=== PATIENT | male | born 1940 | race Caucasian/White ===

== ENCOUNTER → 2018-02-02 12:07 | Outpatient (REF) | payer MEDICARE, SELFPAY ==
[2018-02-02 20:28] LABS: Abs Immature Grans 0.11 k/cumm (0.0-0.09); Absolute Basophil Count 0.04 k/cumm (0.0-0.2); Absolute Eosinophil Count 0.08 k/cumm (0.0-0.7); Absolute Lymphocyte Count 1.35 k/cumm (1.2-3.4); Absolute Monocyte Count 0.92 k/cumm (0.11-0.7); Absolute Neutrophil Count 6.93 k/cumm (1.2-6.7); Basophils % 0.4; Eosinophils % 0.8; HCT 43.5 % (40.0-50.0); Immature Grans % 1.2; Lymphocytes % 14.3; Mean Corp. HGB Concentration 34.5 g/dL (32.0-36.0); Mean Corpuscular Hemoglobin 31.4 pg (27.0-33.0); Mean Corpuscular Volume 91.2 fL (80-95); Mean Platelet Volume 10.3 fL (8.0-11.0); Monocytes % 9.8; Neutrophils % 73.5; Platelet Count 353 x1000/uL (130-400); RBC 4.77 m/cumm (4.50-6.00); RBC Distribution Width 12.3 % (11.8-14.1); White Blood Cell Count 9.43 k/cumm (4.4-10.8)
[2018-02-02 21:03] LABS: Ferritin 58 ng/mL (8-388)
[2018-02-02 21:32] LABS: Iron 76 ug/dL (50-175); Total Iron Binding Capacity 427 ug/dL (250-450); Transferrin Sat 18 % (20-55)
== END ==
LOC: NCHCN 12:07
PROVIDERS: Visit Provider Nurse Practitioner
DX: K62.5 Hemorrhage of anus and rectum (principal)
CPT/HCPCS: 82728; 83540; 83550; 85025

== ENCOUNTER 2018-04-14 07:21 | Day surgery (SDC) | payer MEDICARE, SELFPAY ==
[2018-04-14 07:39] VITALS: BP 133/64; PULSE 92; RESP 18; TEMP 36.5; O2SAT 98
[2018-04-14] MEDS: Lactated Ringers 1,000 ML 30 ML IV (07:50)
--- NOTE | 2018-04-14 09:22 | BOWEL_PTH ---
PATIENT: Ky Torres LOC: [facility] U#:[id number] AGE/SX: 77/M ROOM: RE04/14/[address]: Sánchez Carter DO : 1940 BED: DIS: 04/14/2018 SPEC #: [id number] RECD: 04/14/18 12:24 STATUS: CRISTY REQ #: [id number] CHINYERE: 04/14/18 09:[address]: Sánchez Carter DEPT: Surgical Specimen RECD BY: Michelle Ac ENTERED: 04/14/18 12:25 SP TYPE: Bowel OTHR DR: Ronna Morocho Tissues: 1 - BIOPSY BOWEL 2 - BIOPSY BOWEL Procedures: GROSS AND MICRO LEVEL 4 Comments: [id number]
--- NOTE | 2018-04-14 09:37 | W.COLOREPORT ---
Date of service: 04/14/18 Time of Service: 07:13 Colonoscopy Report Date of procedure: 04/14/18 Pre-op diagnosis general: Colorectal cancer screening Post-op diagnosis procedure note: other (Colon and rectal polyps) Procedure: Colonoscopy to the cecum with biopsies by cold forceps Surgeon: Sánchez Carter Anesthesia proc note operative: MAC (Lily Ulrich CRNA; ASA 2 Mallampati class II) Estimated blood loss (mL): 1 Pathology: other (1. Transverse colon polyp 2. Rectal polyp) Complications: None Disposition: same day Indications: 77 y/o male presents for his first colonoscopy screening pre-op. He reports a history of hemorrhoids, which currently are not an issue. He reports that he uses laxatives every few weeks for constipation, but he has been doing for years. He denies any changes in bowel habits including black tarry stools, abdominal pain, diarrhea. He denies constitutional symptoms. He uses marijuana daily. Denies use any other recreational or illegal drugs. Prep: Miralax/Dulcolax (Prep quality good) Procedure Start Time: 07:13 Procedure End Time: 07:30 Retraction Time: 9 Findings: In examining the colon from cecum to anus, the patient was found to have 1 polyp in the colon, and a second polyp was identified in the rectum. Both polyps were removed by cold biopsy forceps. No other abnormalities were noted of the colon Procedure Description: The patient was seen in the day surgery waiting area. His identification was confirmed, and procedure checked. He was then brought to the procedure room. Monitoring for telemetry, blood pressure, oxygen saturation, and end tidal CO2 monitoring were applied. An appropriate time out was performed to confirm, identification, allergies, medication, procedure, was performed. Sedation was titrated for affect by the MACHINE SHOP WORKER; Once adequate sedation was achieved, I performed a inspection of the external perineum, and a digitial rectal examination. No significant external abnormalities were noted. On digital rectal examination, there was no blood, no masses, good rectal tone, and a normal prostate. I advanced the colonoscope from the anus to the cecum under direct visualization. The cecum was identified by the ileal-cecal valve, and the appendiceal orifice. The scope was then withdrawn in circumferential manner from the cecum to the rectum. A single polyp was identified in the transverse colon, and removed by cold biopsy forcep. The scope was then withdrawn into the rectum, a single polyp was identified in the rectum which was subsequently removed by cold biopsy forceps. The scope was then retroflexed in the rectum, no further abnormalities were noted of the rectum or anorectal junction. The scope was then withdrawn, terminating the procedure. There were no complications during the procedure, and the patient tolerated the procedure well. He was returned to the day surgery recovery area in good condition. Plan: Will await pathology before making further recommendation.
--- NOTE | 2018-04-14 09:46 | W.PM.DSUDISC ---
Discharge Plan Disposition Patient Disposition: HOME Condition: Good Discharge Details Reason For Visit: Update HIPAA Dir. Attending Provider: Sánchez Carter Primary Care Provider: Ronna Morocho Home Meds and New Rx's Prescriptions: No Action fluticasone [Allergy Relief (fluticasone)] 50 mcg/actuation spray,suspension 2 spray MIKEY DAILY RF: 0 albuterol sulfate [ProAir HFA] 90 mcg/actuation HFA aerosol inhaler 2 puff IH Q6H PRNRF: 0 amitriptyline 25 mg tablet 25 mg PO HS RF: 0 lisinopril 40 mg tablet 40 mg PO DAILY RF: 0 amlodipine 5 mg tablet 5 mg PO DAILY RF: 0 simvastatin 10 mg tablet 10 mg PO QPM RF: 0 Discharge Instructions Instructions: Colonoscopy (DC) Stand Alone Forms: Varun Garcia (MARY ANNU) Activity:: Activity as Tolerated Diet:: As Tolerated Discharge Orders Discharge Orders: Discharge Order (Routine); Ordered 04/14/18 Ordered By: Sánchez Carter DS: Diagnosis Discharge Diagnosis (1) Encounter for screening colonoscopy: Start date: 04/14/18 Start time: 07:13 Status: Acute Asessment and Plan: Colonoscopy performed: Colonoscopy Report Date of procedure: 04/14/18 Pre-op diagnosis general: Colorectal cancer screening Post-op diagnosis procedure note: other (Colon and rectal polyps) Procedure: Colonoscopy to the cecum with biopsies by cold forceps Surgeon: Sánchez Carter Anesthesia proc note operative: MAC (Lily Ulrich CRNA; ASA 2 Mallampati class II) Estimated blood loss (mL): 1 Pathology: other (1. Transverse colon polyp 2. Rectal polyp) Complications: None Disposition: same day Indications: 77 y/o male presents for his first colonoscopy screening pre-op. He reports a history of hemorrhoids, which currently are not an issue. He reports that he uses laxatives every few weeks for constipation, but he has been doing for years. He denies any changes in bowel habits including black tarry stools, abdominal pain, diarrhea. He denies constitutional symptoms. He uses marijuana daily. Denies use any other recreational or illegal drugs. Prep: Miralax/Dulcolax (Prep quality good) Procedure Start Time: 07:13 Procedure End Time: 07:30 Retraction Time: 9 Findings: In examining the colon from cecum to anus, the patient was found to have 1 polyp in the colon, and a second polyp was identified in the rectum. Both polyps were removed by cold biopsy forceps. No other abnormalities were noted of the colon Procedure Description: The patient was seen in the day surgery waiting area. His identification was confirmed, and procedure checked. He was then brought to the procedure room. Monitoring for telemetry, blood pressure, oxygen saturation, and end tidal CO2 monitoring were applied. An appropriate time out was performed to confirm, identification, allergies, medication, procedure, was performed. Sedation was titrated for affect by the MULLING MACHINE OPERATOR; Once adequate sedation was achieved, I performed a inspection of the external perineum, and a digitial rectal examination. No significant external abnormalities were noted. On digital rectal examination, there was no blood, no masses, good rectal tone, and a normal prostate. I advanced the colonoscope from the anus to the cecum under direct visualization. The cecum was identified by the ileal-cecal valve, and the appendiceal orifice. The scope was then withdrawn in circumferential manner from the cecum to the rectum. A single polyp was identified in the transverse colon, and removed by cold biopsy forcep. The scope was then withdrawn into the rectum, a single polyp was identified in the rectum which was subsequently removed by cold biopsy forceps. The scope was then retroflexed in the rectum, no further abnormalities were noted of the rectum or anorectal junction. The scope was then withdrawn, terminating the procedure. There were no complications during the procedure, and the patient tolerated the procedure well. He was returned to the day surgery recovery area in good condition. Plan: Will await pathology before making further recommendation.
[2018-04-14 10:00] VITALS: BP 154/93; PULSE 79; RESP 16; TEMP 35.5; O2SAT 97
== END 2018-04-14 10:20 | disposition home or self-care (01) ==
PROVIDERS: Visit Provider Surgery
PROC: 0DJD8ZZ Inspection of Lower Intestinal Tract, Via Natural or Artificial Opening Endoscopic (ICD-10-PCS; CPT 45378; principal; 2018-04-14 09:15)
DX: Z12.11 Encounter for screening for malignant neoplasm of colon (principal); D12.3 Benign neoplasm of transverse colon; K62.1 Rectal polyp; I10 Essential (primary) hypertension; K21.9 Gastro-esophageal reflux disease without esophagitis; F17.210 Nicotine dependence, cigarettes, uncomplicated
CPT/HCPCS: 45380; 88305

== ENCOUNTER 2018-08-04 14:06 | Outpatient (REF) | payer MEDICARE, SELFPAY ==
[2018-08-04 20:52] LABS: ALT 24 U/L (12-78); AST 23 U/L (15-37); Albumin 3.8 g/dL (3.4-5.0); Alkaline Phosphatase 120 U/L (46-116); Anion Gap 8.5 mmol/L (3-11); BUN 12 mg/dL (7-18); Bilirubin, Total 0.3 mg/dL (0.2-1.0); CO2 28.5 mmol/L (21.0-32.0); Calcium 8.8 mg/dL (8.5-10.1); Chloride 100 mmol/L (98-107); Glucose 105 mg/dL (70-100); Potassium 4.4 mmol/L (3.5-5.1); Sodium 137 mmol/L (136-145); Total Protein 7.2 g/dL (6.4-8.2)
[2018-08-04 20:53] LABS: Hemoglobin A1C 6.1 % (4.5-6.2)
== END 2018-08-04 14:26 ==
LOC: NCHCN 14:06
PROVIDERS: Visit Provider Nurse Practitioner
DX: R73.01 Impaired fasting glucose (principal); I10 Essential (primary) hypertension
CPT/HCPCS: 80053; 83036

== ENCOUNTER 2021-02-24 19:32 | Outpatient (REF) | payer MEDICARE, SELFPAY ==
[2021-02-24 14:27] LABS: Anion Gap 8.4 mmol/L (3-11); BUN 8 mg/dL (7-18); CO2 30.6 mmol/L (21.0-32.0); CREATININE 0.8 mg/dL (0.70-1.30); Chloride 101 mmol/L (98-107); Glucose 94 mg/dL (74-106); Potassium 3.5 mmol/L (3.5-5.1); Sodium 140 mmol/L (136-145)
== END 2021-02-24 19:33 | disposition home or self-care (01) ==
LOC: NCHCN 19:32
PROVIDERS: Referring Provider Nurse Practitioner Family; Visit Provider Nurse Practitioner Family
DX: I10 Essential (primary) hypertension (principal)
CPT/HCPCS: 80048

== ENCOUNTER 2021-06-12 03:02 | Outpatient (CLI) | payer MEDICARE, SELFPAY ==
[2021-06-12 11:05] LABS: Source Nasal/Nares
[2021-06-12 13:56] LABS: COVID-19 PCR Negative (Negative)
== END 2021-06-12 03:03 | disposition home or self-care (01) ==
LOC: LBO 03:02
PROVIDERS: PCP Nurse Practitioner Family; Visit Provider Ophthalmology
DX: Z20.822 Contact with and (suspected) exposure to COVID-19 (principal); Z01.818 Encounter for other preprocedural examination
CPT/HCPCS: 87635

== ENCOUNTER 2021-06-15 07:32 | Day surgery (SDC) | payer MEDICARE, SELFPAY ==
[2021-06-15 08:20] VITALS: BP 161/75; PULSE 90; RESP 90; TEMP 36.6; O2SAT 98
[2021-06-15] MEDS: Tropicam./Phenyleph. (1/2.5%) 5 ML BTL OS ×3 (08:40→08:52)
--- NOTE | 2021-06-15 09:30 | W.ANESPRE ---
General Info Date of Service Date Performed: 06/15/21 Height: 5 ft 7.5 in Weight: 59.3 kg Body Mass Index (BMI): 20.1 Surgical Procedure: Operation Date: 06/15/21 10:40 Proposed Procedures Side Surgeon p Cataract Extraction with IOL Implant Left Smooth Rose MD Meds Allergies and Home Medications Allergies Allergy/AdvReac Type Severity Reaction Status Date / Time chlorthalidone Allergy Mild dizzy, Verified 06/15/21 08:26 lightheaded Home Medication Medication Instructions Recorded albuterol sulfate 90 mcg/actuation 2 puff IH Q6H PRN 02/10/18 aerosol inhaler amitriptyline 25 mg tablet 25 mg PO HS 02/10/18 amlodipine 5 mg tablet 5 mg PO DAILY 02/10/18 fluticasone propionate 50 2 spray MIKEY DAILY 02/10/18 mcg/actuation nasal spray,suspension lisinopril 40 mg tablet 40 mg PO DAILY 02/10/18 simvastatin 10 mg tablet 10 mg PO QPM 02/10/18 Current Visit Medications: Current Medications Generic Name Dose Route Start Last Admin Trade Name Freq PRN Reason Stop Dose Admin Acetaminophen 1,000 mg 06/15/21 06:00 Acetaminophen 500 Mg Tab PO Q4H PRN PRN Miscellaneous Medication 0 ml 06/15/21 06:00 Prednisolone 1%, Moxifloxacin 0.5%, Nepafenac 0.1% 5ml Btl OS DIRECTED [facility] Miscellaneous Medication 0 ml 06/15/21 06:00 06/15/21 08:52 Tropicam./Phenyleph. (1/2.5%) 5 Ml Btl OS 1 drp DIRECTED GUY Administration Tetracaine HCl 0 ml 06/15/21 06:00 Tetracaine 0.5% 4 Ml Btl OS DIRECTED [facility] PFSH Active Problems Active Problems: Problem Status Onset Code Rectal bleeding K62.5 Hypertension I10 Asthma J45.909 Impaired fasting glucose R73.01 GERD (gastroesophageal reflux disease) K21.9 Glaucoma H40.9 Insomnia G47.00 Chronic low back pain M54.5, G89.29 Hyperlipidemia E78.5 Allergic rhinitis J30.9 Tobacco abuse Z72.0 History of hemorrhoids Z87.19 Encounter for screening colonoscopy Z12.11 Surgical History Surgical History 04/14/18 dr muller, tubular adenoma, repeat 5 years H/O right wrist surgery S/P left knee arthroscopy Tobacco Smoking/Tobacco Use Status: Current every day Tobacco Type: cigarettes Smoking cigarettes per day: 10 Alcohol Alcohol Intake: current Alcohol intake frequency: a few times a week Alcohol type: beer Substance Use Substance use: Occasionally Substance use type: marijuana Vital Signs and Lab Results Vital Signs Most Recent Vital Signs in EMR: Most Recent Vital Signs Temp Pulse Resp BP Pulse Ox 36.6 C 90 90 H 161/75 H 98 06/15/21 08:20 06/15/21 08:20 06/15/21 08:20 06/15/21 08:20 06/15/21 08:20 Lab Results Blood Type / Crossmatch: No Data to Display Complete Blood Count: No Data to Display Complete Metabolic Panel: No Data to Display Liver Function Panel: No Data to Display Coagulation Panel: No Data to Display Cardiac Panel: No Data to Display Arterial Blood Gas: No Data to Display Venous Blood Gas: No Data to Display Pancreas Panel: No Data to Display Thyroid Panel: No Data to Display Infectious Disease: Coronavirus (COVID-19)(PCR) Negative (Negative) 06/12/21 08:45 06/12/21 Coronavirus 2019 Source Nasal/Nares 06/12/21 08:45 06/12/21 Blood Cultures: No Data to Display Toxicology Panel: No Data to Display Anesthesia Assessment and Plan Anesthesia History Personal History: No History of Anesthesia Complications Family History: No Family History of Anesthesia Complications Exercise Tolerance Exercise Tolerance: Metabolic Equivalents>4 Pertinent Negatives Pertinent Negatives: No Symptoms of GERD (Well controlled with medication ), No Major Cardiovascular Symptoms or Complaints, No Major Pulmonary Symptoms or Complaints and No History of CVA/TIA Cardiac & Pulmonary Exam Cardiac Exam: Normal S1/S2 Heart Sounds Pulmonary Exam: Clear Bilateral Breath Sounds Implantable Cardiac Device Does patient have a Pacemaker or an ICD?: No Airway Exam Known Difficult Airway: No Mallampati Class: 1 Mouth Opening: Normal (> 3cm) Thyromental Distance: Greater than 3 cm Facial Hair: Full Marie Neck Range of Motion: Full ROM Neck Circumference: Normal Teeth Condition: Removable Dentures/Plates Upper and Removable Dentures/Plates Lower ASA Classification ASA Score: ASA 2 Emergency Case?: No NPO Status NPO Status: NPO Clears >2 hours, Solids >8 hours Anesthesia Plan Resuscitation Status: Full Code Anesthesia Technique: MAC Anesthesia Airway Planned: Natural Airway Monitors Used: Standard Monitors
[2021-06-15 09:32] VITALS: BMI 20.1
[2021-06-15] MEDS: Tetracaine 0.5% 4 ML BTL OS (09:52)
[2021-06-15] MEDS: Lidocaine 2% Jelly 6 ML SYR (09:53)
[2021-06-15] MEDS: Balanced Salt Soln.-PLUS 500 ML BAG (09:53)
[2021-06-15] MEDS: Duovisc Viscoelastic System EACH 1 EACH (09:53)
[2021-06-15] MEDS: Povidone-Iodine Ophth 30 ML BTL (09:55)
[2021-06-15] MEDS: Trypan Blue 0.06% 0.5 ML SYR (09:56)
[2021-06-15 10:31] VITALS: BP 158/66; PULSE 79; RESP 16; TEMP 36.4; O2SAT 98
--- NOTE | 2021-06-15 10:33 | W.ANESPOSTOP ---
Postoperative Evaluation Date, Time and Location Date Performed: 06/15/21 Time Performed: 10:33 Patient Location: Day Surgery Unit Vital Signs Most Recent Imported Vital Signs: Most Recent Vital Signs Temp Pulse Resp BP Pulse Ox 36.6 C 90 90 H 161/75 H 98 06/15/21 08:20 06/15/21 08:20 06/15/21 08:20 06/15/21 08:20 06/15/21 08:20 Most Recent Manually Entered Vital Signs: Adult Blood Pressure: 158/66 Heart Rate: 80 Respirations: 12 Oxygen Saturation (%): 93 Temperature (C): 36.4 C Pain Score (0-10 Scale): 0 Pain Score Most Recent Pain Score: Most Recent Pain Score Pain Level 0 06/15/21 08:20 Assessment Mental Status: Awake (Alert & Oriented to Patient Baseline) Airway and Respiratory Function: Patent airway with normal (patient baseline) respiratory exam Cardiovascular Function: Hemodynamically Stable Hydration Status: Adequately Hydrated Nausea & Vomiting: No Nausea or Vomiting Pain: Pt. Denies Any Pain Peripheral Nerve Block: Patient did not receive a nerve block
--- NOTE | 2021-06-15 10:33 | W.PM.DSUDISC ---
Discharge Plan Disposition Patient Disposition: HOME Condition: Good Discharge Details Attending Provider: Smooth Rose Primary Care Provider: Maritza Harrison Home Meds and New Rx's Prescriptions: No Action fluticasone propionate [Allergy Relief (fluticasone)] 50 mcg/actuation spray,suspension 2 spray MIKEY DAILY RF: 0 albuterol sulfate [ProAir HFA] 90 mcg/actuation HFA aerosol inhaler 2 puff IH Q6H PRNRF: 0 amitriptyline 25 mg tablet 25 mg PO HS RF: 0 lisinopril 40 mg tablet 40 mg PO DAILY RF: 0 amlodipine 5 mg tablet 5 mg PO DAILY RF: 0 simvastatin 10 mg tablet 10 mg PO QPM RF: 0 Discharge Instructions Stand Alone Forms: Post-op Topical Cataract, Varun Garcia (DSU) Discharge Orders Discharge Orders: Discharge Order (Routine); Ordered 06/15/21 Ordered By: Smooth Rose DS: Diagnosis Discharge Diagnosis (1) Nuclear sclerotic cataract of right eye: Status: Resolved
[2021-06-15 10:34] VITALS: BP 158/66; PULSE 80; RESP 12; TEMPC 36.4; O2SAT 93
--- NOTE | 2021-06-15 10:34 | W.PM.OP ---
Date of service: 06/15/21 Time of Service: 10:34 Operative Note Operative Note DATE OF PROCEDURE: 06/15/21 PRE-OP DIAGNOSIS: Dense nuclear cataract, left eye Poorly dilating pupil, left eye Red reflex, left eye secondary to cataract PROCEDURE: Cataract extraction using phacoemulsification with intraocular lens implant, left eye, with pupillary dilation using Malyugin Ring and capsular staining using Vision Blue SURGEON: Smooth Rose ANESTHESIA TYPE: Local By Surgeon and MAC Refer to Anesthesia Record ESTIMATED BLOOD LOSS: 0 PATHOLOGY: none sent COMPLICATIONS: None Patient was transported to: same day Patient's condition: stable Implants: Jonathan [employer] Jonathan / [employer] Tecnis [id number] Indications: Progressive decreased vision due to cataract, left eye Procedure Description: CATARACT SURGERY OPERATIVE REPORT PREOPERATIVE DIAGNOSIS: 1. Dense nuclear cataract, left eye 2. Poorly dilating pupil, left eye 3. Poor red reflex, left eye POSTOPERATIVE DIAGNOSIS: Same OPERATION: 1. Cataract extraction using phacoemulsification with posterior chamber intraocular lens implant, left eye. 2. Pupillary dilation and iris stabilization using Malyugin Ring 3. Capsular staining with VIsion Blue IOL: IOL Chemical Processing Technician/Model: Jonathan & Jonathan / JAIME Tecnis [id number] IOL Power: + 21.5 diopters IOL Serial Number: [id number] Optic Diameter: 6.0mm Haptic/Overall Diameter: 13.0mm PHACO INFO: Jw Sistemicurion Vision System with OZil and Active Fluidics Cumulative Dispersed Energy (CDE): 67.45 seconds SURGEON: Smooth Rose MD, JOANIE ANESTHESIA: Monitored Anesthesia Care (MAC), with local sub-tenon's anesthetic infiltration COMPLICATIONS: None SPECIMENS: None INDICATIONS FOR PROCEDURE: The patient is an 81-year-old gentleman with history of diminished visual acuity in his left eye. He is noted to have a very dense nuclear cataract. The option of cataract surgery was offered to the patient and he wished to proceed. PROCEDURE: The correct surgical eye was identified and marked as the left eye and the pupil was dilated in the preoperative area using mydriatics, cycloplegics, and NSAIDS (except in aspirin allergic patients). The dilated pupil size was 5.0 mm. He will let to proceed without oral sedation.. The patient was brought to the operating room where cardiopulmonary monitoring was instituted and surgical time-out was performed, confirming the correct operative eye and IOL power. Topical anesthesia was administered and ophthalmic povidone-iodine 5% was instilled into the conjunctival fornices. Lidocaine gel was applied to the cornea and the rg-ocular area was prepped with Betadine 10% solution and draped in the usual sterile fashion for intraocular surgery, including an aperture drape. A Tegaderm transparent film dressing was cut in half and used to cover the lashes and lid margins. Care was taken to sequester the lashes and lid margins under the Tegaderm dressing. A lid speculum was placed between the lids of the operative eye and the Olivia-Nick operating microscope was maneuvered into position. Teodoro scissors were then used to make a conjunctival buttonhole approximately 6mm posterior to the limbus in the inferonasal quadrant. Blunt dissection was carried out to expose bare sclera, and a blunt-tipped sub-tenon?s anesthesia cannula was introduced and passed posteriorly along the globe where non-preserved plain lidocaine was injected into posterior sub-Tenon?s space. A sideport knife was used to make a paracentesis port superiorly/superiortemporally. Intraocular phenylephrine/lidocaine was injected into the anterior chamber. The anterior chamber was then filled with cohesive viscoelastic. A 2.4mm keratome knife was used to create a half-thickness groove at the limbus and then to construct a three-plane near-clear corneal tunnel extending 2.0mm into clear cornea temporally. A 7.0 mm Malyugin Ring was then inserted into the pupillary space and engaged with the Kuglen hook. Viscoelastic was then removed from the anterior chamber and air was then injected into the anterior chamber. VisionBlue was then painted over the anterior capsule, and left for 30 seconds, in which point it was irrigated from the eye. The anterior chamber was then filled with Viscoat. A flap was raised on the anterior capsule and capsulorhexis forceps were used to complete a continuous curvilinear capsulorhexis of 5.5 mm. Moderate zonular laxity was noted. Balanced salt solution was then used to perform cortical cleaving hydrodissection and nuclear hydrodelineation until the lens could be freely rotated within the capsular bag. The lens nucleus was then disassembled and removed within the capsular bag and iris plane using phacoemulsification. The nucleus was noted to be extremely dense. Nuclear splitters were used to aid in cracking the lens into Anmol nuclei. Additional Viscoat was used intermittently to protect the corneal endothelium. Residual cortical material was removed using the 45-degree angled silicone I/A tip with 0.3mm port. The posterior capsule was carefully polished to remove as much residual lens epithelial cells as safely possible. The capsular bag was then inflated and the anterior chamber deepened with viscoelastic. The lens implant described above was inserted into the capsular bag using the JAIME [place] Injector. A Kuglen hook was used to dial the IOL into position. The Malyugin Ring was removed in the reverse order of its insertion. Residual viscoelastic was then removed first from posterior to the IOL, then from the anterior chamber using the I/A handpiece. The lens implant was noted to center nicely within the capsular bag. The incisions were stromally hydrated, and the anterior chamber was reformed using BSS. Then 0.5cc of moxifloxacin 1.0mg/ml were injected into the capsular bag and anterior chamber. The incisions were checked with a Weck spear and found to be secure. Several drops of ophthalmic povidone-iodine 5% were then applied to the eye followed by two drops of Imprimis combination prednisolone/moxifloxacin/nepafenac solution. The drapes were removed and a clear plastic protective eye shield was placed over the eye. The patient was then returned to Same Day Surgery in stable condition.
== END 2021-06-15 10:55 | disposition home or self-care (01) ==
PROVIDERS: PCP Nurse Practitioner Family; Visit Provider Ophthalmology
PROC: (CPT 66982; principal; 2021-06-15 10:30)
DX: H25.12 Age-related nuclear cataract, left eye (principal); H57.03 Miosis; I10 Essential (primary) hypertension; K21.9 Gastro-esophageal reflux disease without esophagitis; R73.01 Impaired fasting glucose; F17.210 Nicotine dependence, cigarettes, uncomplicated
CPT/HCPCS: 66982; V2632

== ENCOUNTER 2021-06-26 01:36 | Outpatient (CLI) | payer MEDICARE, SELFPAY ==
[2021-06-26 12:23] LABS: Source Nasal/Nares
[2021-06-26 15:52] LABS: COVID-19 PCR Negative (Negative)
== END 2021-06-26 01:37 | disposition home or self-care (01) ==
LOC: LBO 01:36
PROVIDERS: PCP Nurse Practitioner Family; Visit Provider Ophthalmology
DX: Z20.822 Contact with and (suspected) exposure to COVID-19 (principal)
CPT/HCPCS: 87635

== ENCOUNTER 2021-06-29 09:45 | Day surgery (SDC) | payer MEDICARE, SELFPAY ==
[2021-06-29] MEDS: Tropicam./Phenyleph. (1/2.5%) 5 ML BTL OD ×3 (10:16→10:29)
[2021-06-29 10:29] VITALS: BP 153/61; PULSE 92; RESP 18; TEMP 36.3; O2SAT 98
--- NOTE | 2021-06-29 11:03 | W.ANESPRE ---
General Info Date of Service Date Performed: 06/29/21 Height: 5 ft 7.5 in Weight: 61.1 kg Body Mass Index (BMI): 20.7 Surgical Procedure: Operation Date: 06/29/21 12:40 Proposed Procedures Side Surgeon p Cataract Extraction with IOL Implant Right Smooth Rose MD Meds Allergies and Home Medications Allergies Allergy/AdvReac Type Severity Reaction Status Date / Time chlorthalidone Allergy Mild dizzy, Verified 06/29/21 10:18 lightheaded Home Medication Medication Instructions Recorded albuterol sulfate 90 mcg/actuation 2 puff IH Q6H PRN 02/10/18 aerosol inhaler amitriptyline 25 mg tablet 25 mg PO HS 02/10/18 amlodipine 5 mg tablet 5 mg PO DAILY 02/10/18 fluticasone propionate 50 2 spray MIKEY DAILY 02/10/18 mcg/actuation nasal spray,suspension lisinopril 40 mg tablet 40 mg PO DAILY 02/10/18 simvastatin 10 mg tablet 10 mg PO QPM 02/10/18 Current Visit Medications: Current Medications Generic Name Dose Route Start Last Admin Trade Name Freq PRN Reason Stop Dose Admin Acetaminophen 1,000 mg 06/29/21 06:00 Acetaminophen 500 Mg Tab PO Q4H PRN PRN Miscellaneous Medication 0 ml 06/29/21 06:00 Prednisolone 1%, Moxifloxacin 0.5%, Nepafenac 0.1% 5ml Btl OD DIRECTED [facility] Miscellaneous Medication 0 ml 06/29/21 06:00 06/29/21 10:29 Tropicam./Phenyleph. (1/2.5%) 5 Ml Btl OD 1 drp DIRECTED GUY Administration Tetracaine HCl 0 ml 06/29/21 06:00 Tetracaine 0.5% 4 Ml Btl OD DIRECTED [facility] PFSH Active Problems Active Problems: Problem Status Onset Code Nuclear sclerotic cataract of right eye H25.11 Rectal bleeding K62.5 Hypertension I10 Asthma J45.909 Impaired fasting glucose R73.01 GERD (gastroesophageal reflux disease) K21.9 Glaucoma H40.9 Insomnia G47.00 Chronic low back pain M54.5, G89.29 Hyperlipidemia E78.5 Allergic rhinitis J30.9 Tobacco abuse Z72.0 History of hemorrhoids Z87.19 Encounter for screening colonoscopy Z12.11 Surgical History Surgical History H/O colonoscopy (04/14/18) 04/14/18 dr muller, tubular adenoma, repeat 5 years H/O right wrist surgery S/P left knee arthroscopy Tobacco Smoking/Tobacco Use Status: Current every day Tobacco Type: cigarettes Smoking cigarettes per day: 10 Alcohol Alcohol Intake: current Alcohol intake frequency: a few times a week Alcohol type: beer Substance Use Substance use: Occasionally Substance use type: marijuana Vital Signs and Lab Results Vital Signs Most Recent Vital Signs in EMR: Most Recent Vital Signs Temp Pulse Resp BP Pulse Ox 36.3 C L 92 H 18 153/61 H 98 06/29/21 10:29 06/29/21 10:29 06/29/21 10:29 06/29/21 10:29 06/29/21 10:29 Lab Results Blood Type / Crossmatch: No Data to Display Complete Blood Count: No Data to Display Complete Metabolic Panel: No Data to Display Liver Function Panel: No Data to Display Coagulation Panel: No Data to Display Cardiac Panel: No Data to Display Arterial Blood Gas: No Data to Display Venous Blood Gas: No Data to Display Pancreas Panel: No Data to Display Thyroid Panel: No Data to Display Infectious Disease: Coronavirus (COVID-19)(PCR) Negative (Negative) 06/26/21 09:42 06/26/21 Coronavirus 2019 Source Nasal/Nares 06/26/21 09:42 06/26/21 Blood Cultures: No Data to Display Toxicology Panel: No Data to Display Anesthesia Assessment and Plan Anesthesia History Personal History: No History of Anesthesia Complications Family History: No Family History of Anesthesia Complications Exercise Tolerance Exercise Tolerance: Metabolic Equivalents>4 Pertinent Negatives Pertinent Negatives: No Symptoms of GERD (Well controlled with medication ), No Major Cardiovascular Symptoms or Complaints, No Major Pulmonary Symptoms or Complaints and No History of CVA/TIA Cardiac & Pulmonary Exam Cardiac Exam: Normal S1/S2 Heart Sounds Pulmonary Exam: Clear Bilateral Breath Sounds Implantable Cardiac Device Does patient have a Pacemaker or an ICD?: No Airway Exam Known Difficult Airway: No Mallampati Class: 1 Mouth Opening: Normal (> 3cm) Thyromental Distance: Greater than 3 cm Neck Range of Motion: Full ROM Neck Circumference: Normal Teeth Condition: Removable Dentures/Plates Upper and Removable Dentures/Plates Lower ASA Classification ASA Score: ASA 2 Emergency Case?: No NPO Status NPO Status: NPO Clears >2 hours, Solids >8 hours Anesthesia Plan Resuscitation Status: Full Code Anesthesia Technique: MAC Anesthesia Airway Planned: Natural Airway Monitors Used: Standard Monitors
[2021-06-29 11:04] VITALS: BMI 20.7
[2021-06-29] MEDS: Tetracaine 0.5% 4 ML BTL OD (11:17)
[2021-06-29] MEDS: Lidocaine 2% Jelly 6 ML SYR (11:17)
[2021-06-29] MEDS: Duovisc Viscoelastic System EACH 1 EACH (11:23)
[2021-06-29] MEDS: Balanced Salt Soln.-PLUS 500 ML BAG (11:23)
[2021-06-29] MEDS: Povidone-Iodine Ophth 30 ML BTL (11:25)
[2021-06-29] MEDS: Trypan Blue 0.06% 0.5 ML SYR (11:26)
[2021-06-29 11:50] VITALS: BP 159/62; PULSE 81; RESP 16; TEMP 37.1; O2SAT 98
--- NOTE | 2021-06-29 11:53 | W.PM.DSUDISC ---
Discharge Plan Disposition Patient Disposition: HOME Condition: Good Discharge Details Attending Provider: Smooth Rose Primary Care Provider: Maritza Harrison Home Meds and New Rx's Prescriptions: No Action fluticasone propionate [Allergy Relief (fluticasone)] 50 mcg/actuation spray,suspension 2 spray MIKEY DAILY RF: 0 albuterol sulfate [ProAir HFA] 90 mcg/actuation HFA aerosol inhaler 2 puff IH Q6H PRNRF: 0 amitriptyline 25 mg tablet 25 mg PO HS RF: 0 lisinopril 40 mg tablet 40 mg PO DAILY RF: 0 amlodipine 5 mg tablet 5 mg PO DAILY RF: 0 simvastatin 10 mg tablet 10 mg PO QPM RF: 0 Discharge Instructions Stand Alone Forms: Post-op Topical Cataract, Varun Garcia (DSU) Discharge Orders Discharge Orders: Discharge Order (Routine); Ordered 06/29/21 Ordered By: Smooth Rose DS: Diagnosis Discharge Diagnosis (1) Nuclear sclerotic cataract of right eye: Status: Resolved
--- NOTE | 2021-06-29 11:54 | ROE_ITS ---
Date of service: 06/29/21 Time of Service: 11:54 Operative Note Operative Note DATE OF PROCEDURE: 06/29/21 PRE-OP DIAGNOSIS: Dense nuclear cataract, right eye Poorly dilating pupil, right eye Poor red reflex, right eye POST-OP DIAGNOSIS: same PROCEDURE: Cataract extraction using phacoemulsification with intraocular lens implant, right eye, with pupillary dilation using Malyugin Ring and capsular staining using Vision Blue SURGEON: Smooth Rose Refer to Anesthesia Record ESTIMATED BLOOD LOSS: 0 PATHOLOGY: none sent COMPLICATIONS: None Patient was transported to: same day Patient's condition: stable Implants: [employer] / [employer] Tecnis [id number] Indications: Progressive decreased vision due to cataract, right eye Procedure Description: CATARACT SURGERY OPERATIVE REPORT PREOPERATIVE DIAGNOSIS: 1. Dense nuclear cataract, right eye 2. Poorly dilating pupil, right eye 3. Poor red reflex, right eye POSTOPERATIVE DIAGNOSIS: Same OPERATION: 1. Cataract extraction using phacoemulsification with posterior chamber intraocular lens implant, right eye. 2. Pupillary dilation and iris stabilization using Malyugin Ring 3. Capsular staining with VIsion Blue IOL: IOL Experience Designer/Model: Jonathan & Jonathan / JAIME Tecnis [id number] IOL Power: + 22.0 diopters IOL Serial Number: [id number] Optic Diameter: 6.0mm Haptic/Overall Diameter: 13.0mm PHACO INFO: Jw [employer]ion Vision System with OZil and Active [employer]uidics Cumulative Dispersed Energy (CDE): 46.95 seconds SURGEON: Smooth Rose MD, JOANIE ANESTHESIA: Monitored Anesthesia Care (MAC), with local sub-tenon's anesthetic infiltration COMPLICATIONS: None SPECIMENS: None INDICATIONS FOR PROCEDURE: The patient is a 81-year-old gentleman with history of diminished visual acuity in both eyes secondary to development of dense bilateral nuclear cataract. He has already undergone cataract surgery in the left eye and is doing well postoperatively. He now presents for cataract surgery in the right eye. PROCEDURE: The correct surgical eye was identified and marked as the right eye and the pupil was dilated in the preoperative area using mydriatics and cycloplegics. The dilated pupil size was 4.0 mm. He elected to proceed without oral sedation.. The patient was brought to the operating room where cardiopulmonary monitoring was instituted and surgical time-out was performed, confirming the correct operative eye and IOL power. Topical anesthesia was administered and ophthalmic povidone-iodine 5% was instilled into the conjunctival fornices. Lidocaine gel was applied to the cornea and the rg-ocular area was prepped with Betadine 10% solution and draped in the usual sterile fashion for intraocular surgery, including an aperture drape. A Tegaderm transparent film dressing was cut in half and used to cover the lashes and lid margins. Care was taken to sequester the lashes and lid margins under the Tegaderm dressing. A lid speculum was placed between the lids of the operative eye and the Olivia-Nick operating microscope was maneuvered into position. Teodoro scissors were then used to make a conjunctival buttonhole approximately 6mm posterior to the limbus in the inferonasal quadrant. Blunt dissection was carried out to expose bare sclera, and a blunt-tipped sub-tenon?s anesthesia cannula was introduced and passed posteriorly along the globe where non- preserved plain lidocaine was injected into posterior sub-Tenon?s space. A sideport knife was used to make a paracentesis port inferiortemporally. Intraocular phenylephrine/lidocaine was injected into the anterior chamber. Air was then injected into anterior chamber, followed by Vision Blue, which was painted over the anterior capsule and then irrigated out with BSS. The anterior chamber was then filled with viscoelastic. A 2.4mm keratome knife was used to create a half-thickness groove at the limbus and then to construct a three-plane near-clear corneal tunnel extending 2.0mm into clear cornea superiortemporally. A 7.0 mm Malyugin Ring was then inserted into the pupillary space and engaged with the Kuglen hook. A flap was raised on the anterior capsule and capsulorhexis forceps were used to complete a continuous curvilinear capsulorhexis of 5.0 mm. The capsule was noted to be extremely thin with moderate zonular laxity. Balanced salt solution was then used to perform cortical cleaving hydrodissection and nuclear hydrodelineation until the lens could be freely rotated within the capsular bag. The lens nucleus was then disassembled and removed within the capsular bag and iris plane using phacoemulsification. The lens nucleus was very dense. Additional Viscoat was used intermittently to protect the corneal endothelium. Residual cortical material was removed using the 45-degree angled silicone I/A tip with 0.3mm port. The posterior capsule was carefully polished to remove as much residual lens epithelial cells as safely possible. The capsular bag was then inflated and the anterior chamber deepened with viscoelastic. The lens implant described above was inserted into the capsular bag using the JAIME [place] Injector. A Kuglen hook was used to dial the IOL into position. The Malyugin Ring was removed in the reverse order of its insertion. Residual viscoelastic was then removed first from posterior to the IOL, then from the anterior chamber using the I/A handpiece. The lens implant was noted to center nicely within the capsular bag. The incisions were stromally hydrated, and the anterior chamber was reformed using BSS. Then 0.5cc of moxifloxacin 1.0mg/ml were injected into the capsular bag and anterior chamber. The incisions were checked with a Weck spear and found to be secure. Several drops of ophthalmic povidone-iodine 5% were then applied to the eye followed by two drops of Imprimis combination prednisoone/moxifloxacin/nepafenac solution. The drapes were removed and a clear plastic protective eye shield was placed over the eye. The patient was then returned to Same Day Surgery in stable condition.
--- NOTE | 2021-06-29 11:56 | W.ANESPOSTOP ---
Postoperative Evaluation Date, Time and Location Date Performed: 06/29/21 Time Performed: 11:56 Patient Location: Day Surgery Unit Vital Signs Most Recent Imported Vital Signs: Most Recent Vital Signs Temp Pulse Resp BP Pulse Ox 36.3 C L 92 H 18 153/61 H 98 06/29/21 10:29 06/29/21 10:29 06/29/21 10:29 06/29/21 10:29 06/29/21 10:29 Most Recent Manually Entered Vital Signs: Adult Blood Pressure: 159/62 Heart Rate: 81 Respirations: 16 Oxygen Saturation (%): 98 Temperature (C): 37.1 C Pain Score (0-10 Scale): 0 Pain Score Most Recent Pain Score: Most Recent Pain Score Pain Level 0 06/29/21 10:29 Assessment Mental Status: Awake (Alert & Oriented to Patient Baseline) Airway and Respiratory Function: Patent airway with normal (patient baseline) respiratory exam Cardiovascular Function: Hemodynamically Stable Hydration Status: Adequately Hydrated Nausea & Vomiting: No Nausea or Vomiting Pain: Pt. Denies Any Pain Peripheral Nerve Block: Patient did not receive a nerve block
[2021-06-29 11:57] VITALS: BP 159/62; PULSE 81; RESP 16; TEMPC 37.1; O2SAT 98
== END 2021-06-29 12:10 | disposition home or self-care (01) ==
PROVIDERS: PCP Nurse Practitioner Family; Visit Provider Ophthalmology
PROC: (CPT 66982; principal; 2021-06-29 12:30)
DX: H25.11 Age-related nuclear cataract, right eye (principal); H57.03 Miosis; J45.909 Unspecified asthma, uncomplicated; F17.210 Nicotine dependence, cigarettes, uncomplicated; I10 Essential (primary) hypertension
CPT/HCPCS: 66982; V2632

== ENCOUNTER 2022-08-25 15:07 | Outpatient (REF) | payer MEDICARE, SELFPAY ==
[2022-08-25 16:06] LABS: HGB 10.9 g/dL (13.5-17.5); MCH 28.7 pg (27.0-33.0); MCHC 34.1 % (32.0-36.0); MCV 84 fL (80-95); MPV 11.6 fL (8.0-11.0); Platelet Count 344 10^3/uL (130-400); RDW 13.1 % (11.8-14.1); RDW-SD 40.4 fL; WBC 9.73 10^3/uL (4.4-10.8)
[2022-08-25 16:38] LABS: Hemoglobin A1C 6.3 % (<5.7)
[2022-08-25 17:04] LABS: ALT 18 U/L (16-63); AST 18 U/L (15-37); Albumin 3.7 g/dL (3.4-5.0); Alkaline Phosphatase 139 U/L (46-116); Anion Gap 8.7 mmol/L (3-11); BUN 11 mg/dL (7-18); Bilirubin, Total 0.2 mg/dL (0.2-1.0); CO2 27.3 mmol/L (21.0-32.0); Calcium 8.9 mg/dL (8.5-10.1); Calculated LDL 98 mg/dL (<100); Chloride 103 mmol/L (98-107); Cholesterol 164 mg/dL (<200); Estimated GFR 74.21 (mL/min/1.73m2); Glucose 126 mg/dL (74-106); HDL Cholesterol 49 mg/dL (40-60); Potassium 3.3 mmol/L (3.5-5.1); Sodium 139 mmol/L (136-145); Total Protein 7.5 g/dL (6.4-8.2); Triglyceride 88 mg/dL (<150)
[2022-08-27 09:51] LABS: Iron 32 ug/dL (65-175)
== END 2022-08-25 15:08 | disposition home or self-care (01) ==
LOC: NCHCN 15:07
PROVIDERS: PCP Nurse Practitioner Family; Visit Provider Nurse Practitioner Family
DX: I10 Essential (primary) hypertension (principal); R73.03 Prediabetes; D64.9 Anemia, unspecified; K21.9 Gastro-esophageal reflux disease without esophagitis
CPT/HCPCS: 80053; 80061; 85027; 83036; 83540